=== PATIENT | female | born 1985 | race Two or more races ===

== ENCOUNTER 2022-12-23 06:27 | Day surgery (SDC) | payer OTHER ==
[~2022-12-23] VITALS: Ht 170.2 cm; Wt 59.9 kg
== END 2022-12-23 13:35 | disposition home or self-care (01) ==
LOC: U 06:27 → CIR.AMB 06:27
PROVIDERS: ATTEND Obstetrics & Gynecology Maternal & Fetal Medicine
DX: N84.0 Polyp of corpus uteri (principal); Z20.822 Contact with and (suspected) exposure to COVID-19